=== PATIENT | female | born 1965 | race Caucasian/White ===

== ENCOUNTER 2016-11-20 08:25 | Day surgery (SDC) | payer OTHER, MEDICAID ==
[2016-11-20] MEDS ORDERED: LIDOCAINE 1% 2 ML INJ ID PRN (08:41)
[2016-11-20] MEDS ORDERED: LR 1,000 ML IV ONE (08:41)
[2016-11-20 08:50] VITALS: PULSE 69
[2016-11-20] MEDS ORDERED: GLUCAGON,HUMAN RECOMBINANT 1 MG VIAL ONE (09:09)
[2016-11-20] MEDS ORDERED: IOTHALAMATE MEG (CONRAY) 50 ML VIAL IV ONE (09:10)
[2016-11-20] MEDS ORDERED: MIDAZOLAM 2 MG/2 ML VIAL IVP ONE (09:14)
--- NOTE | 2016-11-20 09:16 | PDANEPAE ---
ANE History of Present Illness billiary obstruction ANE Past Medical History - Cardiovascular History Hx Hypertension: Yes Hx Arrhythmias: No Hx Chest Pain: No Hx Coronary Artery / Peripheral Vascular Disease: No Hx CHF / Valvular Disease: No Hx Palpitations: No Cardiovascular History Comment: pcp monitors bp medications - Pulmonary History Hx COPD: No Hx Asthma/Reactive Airway Disease: No Hx Recent Upper Respiratory Infection: No Hx Oxygen in Use at Home: No Hx Sleep Apnea: No Sleep Apnea Screening Result - Last Documented: Negative - Neurologic History Hx Cerebrovascular Accident: No Hx Seizures: No Hx Dementia: No - Endocrine History Hx Diabetes: No - Renal History Hx Renal Disorders: No - Liver History Hx Hepatic Disorders: No - Neurological & Psychiatric Hx Hx Neurological and Psychiatric Disorders: Yes Neurological / Psychiatric History Comment: anxiety. depression - Cancer History Hx Cancer: No - Congenital Disorder History Hx Congenital Disorders: No - GI History Hx Gastrointestinal Disorders: Yes Gastrointestinal History Comment: lap band- currently not using. reflux. typically constipated but working on it now - Other Health History Other Health History: wears glasses - Chronic Pain History Chronic Pain: No - Surgical History Prior Surgeries: d&c's (several). appy. hysterectomy. oophorectomy. lab band and revision x 2. breast implants ANE Review of Systems - Exercise capacity METS (RN): 4 METS ANE Patient History - Allergies Allergies/Adverse Reactions: No Known Allergies Allergy (Verified 11/19/16 13:31) - Home Medications Home Medications: LISINOPRIL/HYDROCHLOROTHIAZIDE 11/19/16 [Last Taken 11/19/16 07:00] VENLAFAXINE HCL 11/19/16 [Last Taken 11/20/16 06:45] - NPO status NPO Since - Liquids (Date): 11/19/16 NPO Since - Liquids (Time): 22:00 NPO Since - Solids (Date): 11/19/16 NPO Since - Solids (Time): 22:00 - Smoking Hx Smoking Status: Never smoked - Family Anes Hx Family Hx Anesthesia Complications: none ANE Labs/Vital Signs - Labs Result Diagrams: 11/20/16 09:00 - Vital Signs Blood Pressure: 124/89 Heart Rate: 69 Respiratory Rate: 16 O2 Sat (%): 96 Height: 167.64 cm Weight: 65.771 kg ANE Physical Exam - Airway Neck exam: FROM Mallampati Score: Class 2 Mouth exam: normal dental/mouth exam - Pulmonary Pulmonary: no respiratory distress - Cardiovascular Cardiovascular: regular rate and rhythym - ASA Status ASA Status: II ANE Anesthesia Plan Anesthesia Plan: general endotracheal anesthesia
[2016-11-20] MEDS ORDERED: INDOMETHACIN 50 MG SUPP PR PRN (09:17)
[2016-11-20] MEDS ORDERED: levOFLOXACIN 500 MG/DEXTROSE 100 ML IV ONE (09:17)
--- NOTE | 2016-11-20 09:17 | PDGENHP ---
History & Physical Chief Complaint: RUQ abdominal pain History of Present Illness: 51 year old female presents for evaluation of RUQ abdominal pain with radiation to the back. Imaging revealed dilated CBD Pertinent Past, Social, Family History: PMHx: HTN. SoHx: + alc. FaMHx: No CRC Relevant Physical Exam: HEENT: anicteric. CV: RRR +s1s2. Lungs: CTAB Cardiorespiratory Assessment: ASA 2, Mal:2
[2016-11-20] MEDS ORDERED: fentaNYL 100 MCG/2 ML INJ ONE (09:18)
[2016-11-20] MEDS ORDERED: DEXAMETHASONE 4 MG/ML VIAL ONE (09:18)
[2016-11-20] MEDS ORDERED: ROCURONIUM 50 MG/5 ML VIAL ONE (09:18)
[2016-11-20] MEDS ORDERED: ONDANSETRON 4 MG/2 ML VIAL ONE ×2 (09:18→11:15)
[2016-11-20] MEDS ORDERED: PROPOFOL 200 MG/20 ML VIAL ONE (09:18)
[2016-11-20 09:27] LABS: ANION GAP 12 mEq/L (8-16); CALCIUM 9.7 mg/dL (8.5-10.4); CARBON DIOXIDE 23 mEq/l (22-31); CHLORIDE 105 mEq/L (97-110); CREATININE 0.7 mg/dL (0.6-1.0); GLOMERULAR FILTRATION RATE > 60; GLUCOSE 85 mg/dL (70-100); POTASSIUM 4.4 mEq/L (3.5-5.2); SODIUM 140 mEq/L (134-144)
[2016-11-20] MEDS ORDERED: NS 500 ML IV SCH (09:30)
[2016-11-20] MEDS ORDERED: NALOXONE HCL 0.4 MG/ML INJ IVP PRN (09:48)
[2016-11-20] MEDS ORDERED: fentaNYL 100 MCG/2 ML INJ IVP PRN (09:48)
--- NOTE | 2016-11-20 10:18 | POSTOPPROG ---
Post Op Note Date of Operation: 11/20/16 Surgeon: Claudio Delcid Anesthesia: IV Sedation Pre-op Diagnosis: ruq abdominal pain, abnl imaging Post-op Diagnosis: extraction of debris. ES extended. Indication: ruq abdominal pain. Procedure: EGD bx, EUS. ERCP with ES, debris extracion. Findings: gastirtis, celiac bx, extraction of debris. Inf/Abcess present in the surg proc area at time of surgery?: No EBL: Minimal Specimen(s): gastritis C.sprue
--- NOTE | 2016-11-20 10:26 | POSTANESTH ---
Post Anesthetic Evaluation Cardiovascular Status: Normal, Stable Respiratory Status: Normal, Stable Level of Consciousness/Mental Status: Can Participate in Eval Pain Control: Adequate, Prn Tx Ordered Nausea/Vomiting Control: Adequate, Prn Tx Ordered Complications Possibly Related to Anesthesia: None Noted
[2016-11-20 10:36] VITALS: TEMP 97.5
--- NOTE | 2016-11-20 10:55 | GPN ---
[f rep st] PROCEDURE NOTE DATE OF PROCEDURE: 11/20/2016 PROCEDURE: Endoscopic retrograde cholangiopancreatography with biliary sphincterotomy, stone extraction. INDICATION: The patient is a 51-year-old female, who presents for evaluation of a intermittent pain in midepigastrium/right upper quadrant with radiation to the back. She did have recent imaging which did reveal a progressively dilated common bile duct. She presents for further evaluation. CONSENT: Risks, benefits, and alternatives of the procedure were discussed in great detail with the patient. Risk of infection, bleeding, perforation, sedation, and pancreatitis were discussed. All questions answered and informed consent was obtained. MEDICATIONS: Propofol. Please see anesthesiology record for details. ESTIMATED BLOOD LOSS: Insignificant. ENDOSCOPIC RETROGRADE CHOLANGIOPANCREATOGRAPHY EXAMINATION: The Olympus duodenoscope was introduced into the mouth and advanced to the second portion of the duodenum. The ampulla was brought into view. There was evidence of a prior biliary sphincterotomy. Using a [employer] sphincterotome and a 0.035 inch wire, a wire was advanced into the common bile duct and intrahepatics using the wire-guided technique. A limited cholangiogram was performed to ensure proper position. Adequate flow of contrast was noted with good visualization of the bile duct. The images were interpreted in real time personally by me. The CBD was dilated to 9mm. There did appear to be some evidence of stenosis of the ampulla and a biliary sphincterotomy was performed. Multiple balloon sweeps were made with a [employer] 12 mm balloon with extraction of significant debris. IMPRESSION: 1. Ampullary stenosis- status post biliary sphincterotomy 2. Extraction of debris. RECOMMENDATIONS: 1. Continue previous medications. 2. Clear liquid diet until tomorrow. /[id number]/MODL MTDD
[2016-11-20] MEDS ORDERED: ONDANSETRON 4 MG/2 ML VIAL IVP ONE (11:08)
[2016-11-20] MEDS ORDERED: PROMETHAZINE HCL 25 MG/ML INJ IVP ONE (11:09)
--- NOTE | 2016-11-20 11:11 | GPN ---
[f rep st] PROCEDURE NOTE DATE OF PROCEDURE: 11/20/2016 PROCEDURE: Esophagogastroduodenoscopy with biopsy, endoscopic ultrasound. INDICATION: The patient is a 51-year-old female who presents for evaluation of nausea as well midepigastric/right upper quadrant pain with radiation to the back. She had recent imaging that revealed common bile duct dilation. She presents for further evaluation. CONSENT: Risks, benefits, and alternatives of the procedure were discussed in great detail with the patient. Risk of infection, bleeding, perforation, sedation, and pancreatitis were discussed. All questions answered and informed consent was obtained. MEDICATIONS: Propofol. ESTIMATED BLOOD LOSS: Insignificant. ESOPHAGOGASTRODUODENOSCOPY EXAMINATION: The Olympus upper endoscope was introduced into the mouth and advanced to the esophagus. The proximal, mid, and distal esophagus was normal in appearance. The stomach was entered and closely examined, including retroflexed views of angularis, cardia, and fundus. The mucosa of the antrum and body of the stomach was erythematous in a patchy distribution. Biopsies were taken. The duodenal bulb and second portion of the duodenum were normal in appearance. Biopsies were taken to rule out celiac sprue. ENDOSCOPIC ULTRASOUND EXAMINATION: The Olympus linear echoendoscope was introduced into the mouth and advanced to the second portion of the duodenum. The esophagus, stomach, and duodenum were examined endosonographically. The pancreas was carefully examined from the uncinate process to the tail, where the spleen was seen. The pancreatic parenchyma had hyperechoic foci with a few dilated side branches in the body of the pancreas. No mass lesion was seen. The common bile duct was seen and was dilated to approximately 9 mm. Significant debris was seen throughout the common bile duct. No obstructing mass was seen. The liver was normal in appearance. No suspicious periportal, peripancreatic, or perigastric nodes appreciated. IMPRESSION: 1. Dilated common bile duct with significant debris. 2. Gastritis- s/p biopsy. 3. Biopsies taken to rule out celiac sprue. RECOMMENDATIONS: 1. Follow up on biopsy results. 2. Proceed with ERCP. /[id number]/MODL MTDD
[2016-11-20 11:53] VITALS: BP 143/92; RESP 18; O2SAT 97
== END 2016-11-20 12:11 | disposition home or self-care (01) ==
LOC: FSGY 08:25
PROVIDERS: ATTEND Internal Medicine Gastroenterology
PROC: 0DB68ZX Excision of Stomach, Via Natural or Artificial Opening Endoscopic, Diagnostic (ICD-10-PCS; principal; 2016-11-20 09:30)
PROC: 0DB98ZX Excision of Duodenum, Via Natural or Artificial Opening Endoscopic, Diagnostic (ICD-10-PCS; principal; 2016-11-20 09:30)
PROC: 0FC98ZZ Extirpation of Matter from Common Bile Duct, Via Natural or Artificial Opening Endoscopic (ICD-10-PCS; principal; 2016-11-20 09:30)
DX: R10.11 Right upper quadrant pain (principal); K80.50 Calculus of bile duct without cholangitis or cholecystitis without obstruction
CPT/HCPCS: J1100; J1610; J1956; J2250; J2405; J2704; J3010; Q9961

== ENCOUNTER → 2017-07-02 | Outpatient (CLI) | payer OTHER | LOC: FIMAGING 09:29 | PROVIDERS: ATTEND Internal Medicine Gastroenterology | DX: K22.0 Achalasia of cardia (principal); K21.9 Gastro-esophageal reflux disease without esophagitis ==